=== PATIENT | male | born 1995 ===

== ENCOUNTER 2016-09-12 01:40 | Emergency (ER) | payer SELFPAY ==
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
[2016-09-12 03:34] VITALS: BP 130/80; PULSE 80; RESP 14; TEMP 98; O2SAT 99
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
== END 2016-09-12 03:30 ==
LOC: C.ER 01:40
DX: S00.81XA Abrasion of other part of head, initial encounter (principal); Y00.XXXA Assault by blunt object, initial encounter; Y92.89 Other specified places as the place of occurrence of the external cause